=== PATIENT | male | born 1955 | race Caucasian/White ===

== ENCOUNTER → 2018-01-01 | Outpatient (CLI) | payer BC ==
[~2018-01-01] MED LIST: AMLO10 PO; BP MED; BUPR150ER PO; CHOLESTEROL MED; LOSARTAN PO; LOSARTAN POTAS100 MG PO; PRAVASTATIN PO; PSEUDOPHED; Pravachol40 MG PO; Sudafed 12 Hou120 MG PO; TESTOSTERONE5 G1 TD
== END ==
LOC: PLD 07:53 → LAB SHORT 07:53
DX: L57.0 Actinic keratosis (principal); K13.5 Oral submucous fibrosis
CPT/HCPCS: 88305; 88312

== ENCOUNTER → 2019-12-21 | Outpatient (CLI) | payer BC | END | disposition home or self-care (01) | LOC: LAB SHORT 13:23 → LAB EV 13:23 | DX: N49.2 Inflammatory disorders of scrotum (principal) | CPT/HCPCS: 87070; 87075; 87205 ==

== ENCOUNTER 2021-05-30 10:32 | Day surgery (SDC) | payer BC ==
[~2021-05-30] VITALS: Ht 180.3 cm; Wt 120.9 kg
[~2021-05-30 10:32] MED LIST changes: +ATEN25 PO; +LEVITRA PO; +MULVITA PO; +NASACORT10.8 ML; +RAMI5 PO; +SERT50 PO; +SILD25T PO
--- NOTE | 2021-05-30 11:20 | NUR ---
05/30/21 1120 Yazmin Quevedo History, Chart, Medications and Allergies reviewed before start of procedure. MAC CASE WITH DR. SERRANO. SEE [facility] RECORD FOR CARE. MONITOR INTACT WITH CONTINUOUS PULSE OXIMETRY AND INTERMITTENT BP. 3-LEAD EKG REVIEWED WITH PHYSICIAN PRIOR TO START OF PROCEDURE.O2 VIA NRM INTACT THROUGHOUT SEDATION/PROCEDURE.
--- NOTE | 2021-05-30 12:09 | NUR ---
Patient up to Ambulate independently. Gait steady. Discharge instructions reviewed with patient. Patient verbalizes understanding. Copy given to patient to take home. Discharged via wheelchair to private car for ride home.
== END 2021-05-30 23:02 | disposition home or self-care (01) ==
LOC: ORSCMMR 10:32 → ORSCSDS 11:30 → ORSCMMR 23:02
PROVIDERS: Surgery
PROC: 0DBL8ZX Excision of Transverse Colon, Via Natural or Artificial Opening Endoscopic, Diagnostic (ICD-10-PCS; principal; 2021-05-30 11:30)
DX: Z12.11 Encounter for screening for malignant neoplasm of colon (principal); Z86.010 Personal history of colon polyps; D12.3 Benign neoplasm of transverse colon; I10 Essential (primary) hypertension; E78.5 Hyperlipidemia, unspecified; G47.33 Obstructive sleep apnea (adult) (pediatric); Z79.899 Other long term (current) drug therapy
CPT/HCPCS: 88305; J2704; J7120

== ENCOUNTER → 2022-02-19 | Outpatient (CLI) | payer BC | LOC: LAB 12:41 → LAB SHORT 12:41 | DX: L08.9 Local infection of the skin and subcutaneous tissue, unspecified (principal) | CPT/HCPCS: 87070; 87077; 87147; 87186; 87205 ==

== ENCOUNTER 2025-05-27 12:46 | Day surgery (SDC) | payer OTHER ==
[~2025-05-27] VITALS: Ht 180.3 cm; Wt 100.0 kg
[~2025-05-27 12:46] MED LIST changes: +AMLO5 PO; +Balanced Salt Epinephrine Irrigation Solution 500 mL IR SCH; +Crestor40 MG PO; +HYDCHL12.5 PO; +IRBE150 PO; +Moxifloxacin HCL 0.5 MG/0.1 ML 0.4MLSYR RIGHTEYE SCH; +NS 500 ML IV ONE; +PHENYLEPHRINE\\TROPICAMIDE\\TETRACAINE OPHTHALMIC DILATING SOLN RIGHTEYE PRN; +Povidone-Iodine 450 DROP/30 ML Solution ONE; +Povidone-Iodine 450 DROP/30 ML Solution RIGHTEYE SCH; +SEMAGLUTID0.25 MG/0. SQ; +TAMS.4ER PO; +Tetracaine HCl/Pf 0.5% Opth Soln 4 ml ONE; +Triamcinolone Inj Susp 40 MG / ML 1ML Vial INJ SCH; +Triamcinolone Inj Susp 40 MG / ML 1ML Vial ONE; +VARDENAFIL HCL20 MG PO
[2025-05-27] MEDS ORDERED: FentaNYL Citrate 50 MCG/ML 2 ML Injection ONE (13:08)
[2025-05-27] MEDS ORDERED: Midazolam HCl 1MG / ML 2ML Vial ONE (13:08)
[2025-05-27] MEDS ORDERED: NS 500 ML IV ONE (13:16)
[2025-05-27] MEDS ORDERED: Tetracaine HCl 0.5% Opth Soln 15 ml RIGHTEYE ONE (13:54)
[2025-05-27 14:20] VITALS: BP 116/73
--- NOTE | 2025-05-27 14:32 | NUR ---
05/27/25 1432 Opal Swanson BROUGHT TO BEDSIDE
== END 2025-05-27 14:45 | disposition home or self-care (01) ==
LOC: ORSCSDS 12:46
PROVIDERS: Ophthalmology
PROC: 08RJ3JZ Replacement of Right Lens with Synthetic Substitute, Percutaneous Approach (ICD-10-PCS; principal; 2025-05-27 14:00)
DX: H25.813 Combined forms of age-related cataract, bilateral (principal); H52.201 Unspecified astigmatism, right eye; H52.4 Presbyopia; I10 Essential (primary) hypertension; G47.33 Obstructive sleep apnea (adult) (pediatric); E66.9 Obesity, unspecified; Z68.31 Body mass index [BMI] 31.0-31.9, adult; Z79.899 Other long term (current) drug therapy; Z79.85 Long-term (current) use of injectable non-insulin antidiabetic drugs
CPT/HCPCS: J2250; J3010; J3301; J7040; V2632